=== PATIENT | male | born 1995 | race African-American/Black ===

== ENCOUNTER 2024-03-22 17:14 | Emergency (ER) | payer OTHER ==
[~2024-03-22] VITALS: Ht 190.5 cm; Wt 126.1 kg
[2024-03-22 17:14] VITALS: BP_SYST 140; PULSE 90; RESP 20; TEMP 98.7; O2SAT 98
[2024-03-22 17:40] LABS: BASOPHILS % (AUTO) 0.7 % (0.0-2.0); EOSINOPHILS # (AUTO) 0.1 K/uL (0.0-0.4); EOSINOPHILS % (AUTO) 1.2 % (0.0-4.0); HEMATOCRIT 42.3 % (36-54); HEMOGLOBIN 14.6 g/dL (14.0-18.0); LYMPHOCYTES # (AUTO) 2.7 K/uL (1.0-5.5); LYMPHOCYTES % (AUTO) 38.1 % (20.5-51.5); MEAN CORPUSCULAR HEMOGLOBIN 29 pg (27-31); MEAN CORPUSCULAR HGB CONC 35 % (32-36); MEAN CORPUSCULAR VOLUME 84 fL (79.0-98.0); MONOCYTES # (AUTO) 0.6 K/uL (0.0-1.0); MONOCYTES % (AUTO) 8.9 % (1.7-9.3); NEUTROPHILS # (AUTO) 3.6 K/uL (1.8-7.7); NEUTROPHILS % (AUTO) 51.1 % (40.0-70.0); PLATELET COUNT (AUTO) 180 K/uL (130-430); RED BLOOD CELL COUNT(AUTO) 5.03 MIL/uL (4.2-6.2); RED CELL DISTRIBUTION WIDTH 14.9 % (9.0-15.0); WHITE BLOOD COUNT (AUTO) 7.1 K/uL (4.8-10.8)
[2024-03-22 17:59] LABS: ANION GAP 11 (5-15); CALCIUM 9.4 mg/dL (8.4-11.0); CARBON DIOXIDE 21 mmol/L (23-29); CHLORIDE 104 mmol/L (98-107); CREATININE 1.16 mg/dL (0.55-1.30); GFR AFRICAN AMERICAN 98 mL/min (>90); GLUCOSE 134 mg/dL (74-106); POTASSIUM 3.1 mmol/L (3.5-5.1); SODIUM SERUM 136 mmol/L (136-145); UREA NITROGEN, BLOOD 13 mg/dL (8-21)
[2024-03-22 18:01] LABS: GFR NON AFRICAN-AMERICAN 81 mL/min (>90)
[2024-03-22] MEDS: KETOROLAC TROMETHAMINE 30 MG VIAL IVP ONE (18:17)
[2024-03-22] MEDS: NACL 0.9% 1,000 ML IV ONE (18:53)
[2024-03-22 18:56] LABS: BILIRUBIN,URINE NEGATIVE (NEGATIVE); BLOOD, URINE NEGATIVE (NEGATIVE); CLARITY/URINE CLEAR (CLEAR); COLOR,URINE YELLOW (YELLOW); GLUCOSE,URINE NEGATIVE (NEGATIVE); KETONES,URINE NEGATIVE (NEGATIVE); LEUKOCYTE ESTERASE ,URINE NEGATIVE (NEGATIVE); NITRITE, URINE NEGATIVE (NEGATIVE); PROTEIN URINE NEGATIVE (NEGATIVE); UROBILINOGEN,URINE 0.2 (0.2-1.0)
[2024-03-22 19:04] LABS: BARBITURATE, URINE NEGATIVE (NEG <=200); BENZODIAZEPINE, URINE NEGATIVE (NEG <=150); CANNABINOID, URINE POSITIVE (NEG <=50); COCAINE, URINE NEGATIVE (NEG <=150); METHAMPHETAMINES SCREEN,URINE NEGATIVE (NEG <=500); OPIATE, URINE NEGATIVE (NEG <=100); PHENCYCLIDINE SCREEN,URINE NEGATIVE (NEG <=25); UR TRICYCLIC ANTIDEPRESSANTS NEGATIVE (NEG <=300); URINE AMPHETAMINE NEGATIVE (NEG <=500); URINE METHADONE NEGATIVE (NEG <=200); URINE OXYCODONE SCREEN NEGATIVE (NEG <=100)
[2024-03-22 19:16] LABS: CKMB RELATIVE INDEX 0.3 (0.0-2.9)
[2024-03-22] MEDS: POTASSIUM CHLORIDE 20 MEQ/PKT PACKET PO ONE (20:01)
[2024-03-22] MEDS: HYDROcodone/ACETAMIN 5-325 MG TAB (NORCO/ VICODIN) PO ONE (20:09)
[2024-03-22 20:15] VITALS: BP_SYST 148; PULSE 71; RESP 20; TEMP 98; O2SAT 98
== END 2024-03-22 20:15 | disposition home or self-care (01) ==
LOC: SED 17:14
DX: R07.89 Other chest pain (principal); R11.0 Nausea; R51.9 Headache, unspecified; F41.9 Anxiety disorder, unspecified
CPT/HCPCS: 99285; 96360; 71045; 80307; 80048; 81001; 82550; 82553; 83880; 85025; 85379; 84484; 36415; 93005; 96372; J1885; J7030; 81003; 96361